=== PATIENT | female | born 1960 | race Native Hawaiian/Other Pacific Islander ===

== ENCOUNTER 2022-12-05 21:50 | Emergency (ER) | payer OTHER ==
[~2022-12-05] VITALS: Ht 160 cm; Wt 39.0 kg
[2022-12-05 21:50] VITALS: BP 125/82; TEMP 98.6
[2022-12-05 22:27] LABS: PLATELET COUNT 254 K/uL (152-353)
[2022-12-05 22:38] LABS: POTASSIUM 3.8 mmol/L (3.6-5.2)
[2022-12-06] MEDS ORDERED: CARV3.12 PO (07:55)
[2022-12-06] MEDS ORDERED: MIRTAZAPINE7.5 MG PO (07:56)
[2022-12-06] MEDS ORDERED: DONEPEZIL HYDRO10 M1 PO (07:56)
[2022-12-06] MEDS ORDERED: KLOR-CON M1010 MEQ PO (07:57)
[2022-12-06] MEDS ORDERED: CARB25TA29 PO (08:00)
[2022-12-06] MEDS ORDERED: DIVALPROEX125 M1 PO (08:01)
[2022-12-06] MEDS ORDERED: HALO5INJ3 IM (08:02)
[2022-12-06] MEDS ORDERED: MILK OF MA400 MG/5 M PO (08:03)
[2022-12-06] MEDS ORDERED: POTASSIUM CHLORIDE PO (08:04)
[2022-12-06] MEDS ORDERED: QUETIAPINE25 MG PO (08:05)
[2022-12-06] MEDS ORDERED: RISP0.5T2 PO (08:05)
[2022-12-06] MEDS ORDERED: SIMV20TA2 PO (08:06)
[2022-12-06] MEDS ORDERED: TRAMADOL HYDROC50 MG PO (08:07)
[2022-12-12] MEDS ORDERED: CARB25TA29 PO (13:37)
[2022-12-12] MEDS ORDERED: CARV3.12 PO (13:38)
[2022-12-12] MEDS ORDERED: DIVALPROEX250 MG PO (13:38)
[2022-12-12] MEDS ORDERED: HALO5INJ3 IM (13:38)
[2022-12-12] MEDS ORDERED: MAGNSUS68 PO (13:38)
[2022-12-12] MEDS ORDERED: QUET25TA2 PO (13:39)
[2022-12-12] MEDS ORDERED: SIMV20TA2 PO (13:39)
== END 2022-12-06 00:03 | disposition other institution (70) ==
LOC: ED 21:50
PROVIDERS: Emergency Medicine
DX: F03.90 Unspecified dementia, unspecified severity, without behavioral disturbance, psychotic disturbance, mood disturbance, and anxiety (principal); R45.1 Restlessness and agitation
CPT/HCPCS: 36415; 80053; 85027; 87635; 93005; 99283; J1630; U0003